=== PATIENT | female | born 1970 | race African-American/Black ===

== ENCOUNTER → 2017-05-16 | Outpatient (CLI) | payer OTHER ==
[~2017-05-16] MED LIST: CIPROFLOXACIN500 M1 PO
== END ==
LOC: RAD 10:54
DX: M47.896 Other spondylosis, lumbar region (principal); M17.0 Bilateral primary osteoarthritis of knee; M25.462 Effusion, left knee; G89.29 Other chronic pain

== ENCOUNTER → 2018-05-06 | Outpatient (CLI) | payer OTHER | LOC: ULTRA 15:18 | DX: M25.561 Pain in right knee (principal) ==